=== PATIENT | female | born 1990 | race African-American/Black ===

== ENCOUNTER 2022-05-08 10:50 | Emergency (ER) | payer MEDICAID ==
[~2022-05-08] VITALS: Ht 162.6 cm; Wt 78.0 kg
[2022-05-08] MEDS ORDERED: OXYCODONE HCL/ACETAMINOPHEN 5/325MG TABLET PO ONE (11:45)
[2022-05-08] MEDS ORDERED: KETOROLAC 30MG/ML VIAL IM ONE (11:45)
[2022-05-08 11:58] VITALS: BP 124/77
[2022-05-08] MEDS ORDERED: OXYC-100 PO (12:59)
== END 2022-05-08 14:17 | disposition home or self-care (01) ==
LOC: ER 10:50
DX: S82.402A Unspecified fracture of shaft of left fibula, initial encounter for closed fracture (principal); V99.XXXA Unspecified transport accident, initial encounter; Y93.89 Activity, other specified; Y92.89 Other specified places as the place of occurrence of the external cause; Y99.8 Other external cause status
CPT/HCPCS: 73564; 96372; 99283; J1885; L1830; Z7610